=== PATIENT | female | born 1960 | race African-American/Black ===

== ENCOUNTER → 2016-11-16 | Day surgery (SDC) | payer BC ==
[~2016-11-16] MED LIST: AMLODIPINE-VAL1 EACH PO; BENTYL20 MG PO; CITALOPRAM HBR40 MG PO; CORICIDIN COLD1 TAB PO; GLUCOPHAGE500 M1 PO; MULTI VITAMIN1 EACH PO; SINGULAIR PO; ZYRTEC10 M1 PO
--- NOTE | ~2016-11-16 | OR ---
Unit #: [id number] #: [id number] Patient: CONSTANTINO PERKINS [id number] [address] [id number] [id number] O MR#: [id number] NAME: CONSTANTINO PERKINS ROOM: Date of Procedure: 11/16/2016 Admission Date: 11/16/2016 Surgeon: Corby Raygoza M.D. : 1960 Attending Physician: Corby Raygoza M.D. OPERATIVE REPORT PRIMARY CARE PHYSICIAN Kyra Thompson M.D. PREOPERATIVE DIAGNOSES Colorectal cancer surveillance. The patient has personal history of colonic polyps. PROCEDURES PERFORMED Colonoscopy and biopsy. POSTOPERATIVE DIAGNOSES 1. The patient had a single sessile polyp in the sigmoid colon. This was diminutive and was removed using cold biopsy forceps. 2. Mild sigmoid and descending colon diverticulosis. 3. Rest of the examination up to cecum and terminal ileum was normal. The quality of the prep was excellent. RECOMMENDATIONS Follow up the results of polyp histology and consider repeat colonoscopy in 5 years. SEDATION USED MAC. DESCRIPTION OF PROCEDURE Following detailed explanation of the potential risks and complications of a colonoscopy, namely perforation, bleeding, and complication related to sedation, the patient was brought to GI lab and laid in the left lateral decubitus position. A digital rectal examination was performed which was normal. Lubricated tip of the Olympus video colonoscope was inserted through the anus and advanced under direct vision. The scope was advanced past rectosigmoid into descending colon. Multiple small to medium-sized diverticula were seen in this area. The scope tip was then navigated all the way up to cecum with visualization of the ileocecal valve and the appendiceal orifice. Preparation was excellent with good visualization and photodocumentation was obtained. Last several inches of terminal ileum were also visualized after intubation of the ileocecal valve and appeared normal. Successive segments of the colonic mucosa were examined upon withdrawal. A single sessile polyp was noted in the distal sigmoid colon. This was about 4 mm in size. It was removed using cold biopsy forceps. The polyp was retrieved and sent for histology. No additional polyps were noted. The patient did have left-sided diverticulosis as Unit #: [id number] #: [id number] Patient: CONSTANTINO PERKINS mentioned earlier. No hemorrhoids were seen at the anal verge. The scope was then withdrawn. The patient returned to the recovery area. She tolerated the procedure without any postprocedure complications. Dictated by... Lamar Hernandes/issac TD: 11/17/2016 01:50 JOB #: [id number] CC: Kyra Thompson M.D. OPERATIVE REPORT Page 1 of 1 X Corby Raygoza MD X PROCEDURE OPERATIVE NOTE
== END | disposition home or self-care (01) ==
LOC: COPS 11:41
DX: Z12.11 Encounter for screening for malignant neoplasm of colon (principal); D12.5 Benign neoplasm of sigmoid colon; K57.30 Diverticulosis of large intestine without perforation or abscess without bleeding; Z86.010 Personal history of colon polyps; E11.9 Type 2 diabetes mellitus without complications; I10 Essential (primary) hypertension
CPT/HCPCS: 82947; 88305